=== PATIENT | male | born 1975 | race African-American/Black ===

== ENCOUNTER 2020-01-06 21:29 | Emergency (ER) | payer SELFPAY ==
[2020-01-06 21:27] VITALS: BP 169/113; PULSE 109; RESP 15; TEMP 37.3; O2SAT 96
[2020-01-06 21:33] VITALS: PULSE 105
--- NOTE | 2020-01-06 21:49 | ED.GENADULT ---
HPI - General Adult General Chief complaint: Unspecified Stated complaint: weakness Time Seen by Provider: 01/06/20 21:51 Source: patient and RN notes reviewed Mode of arrival: EMS Limitations: no limitations History of Present Illness HPI narrative: Pt is a 44 y/o male who presents to the ED via EMS with c/o bilateral hand shaking starting this evening. He notes that he has felt slightly under the weather recently, stating that he has had intermittent nausea, a decreased appetite, rhinorrhea, and mild body aches over the past week. Pt notes that his bilateral hands began shaking shortly after getting to work around 18:00 this evening. He states that his boss noticed his symptoms and subsequently called EMS. Pt currently reports anxiety while in the ED bed, but denies any CP, chest pressure, or diarrhea. He does note that he recently lost 7 lbs over the past month. MD complaint: Hand Shaking Onset (ago): hour(s) (4) Location: upper extremity (bilateral hands) Associated symptoms: loss of appetite, nausea/vomiting (nausea) and other (rhinorrhea; body aches; anxiety; weight loss) Related Data Home Medications Medication Instructions Recorded Confirmed No Home Medications 01/06/20 01/06/20 Allergies Allergy/AdvReac Type Severity Reaction Status Date / Time No Known Allergies Allergy Verified 01/06/20 21:32 Review of Systems Review of Systems: All systems reviewed & are unremarkable except as noted in HPI and below Constitutional: Constitutional: Reports body ache(s), Reports poor appetite and Reports weight loss ENT: Reports nasal discharge Cardiovascular: Cardiovascular: Denies chest pain and Denies other (chest pressure) Gastrointestinal: Gastrointestinal: Denies diarrhea and Reports nausea Neurologic: Reports tremor(s) (shaking in bilateral hands) Psychiatric: Psychiatric: Reports anxiety PMFSH Past Medical History Medical History Healthy adult male Surgical History Surgical History No significant past surgical history Social History Social History Smoking status: Unknown if ever smoked Gender identity (if verbalized by the patient): Male Exam Narrative: Exam Narrative: GENERAL: Anxious-appearing, well-nourished, and in no acute distress. HEAD: Normocephalic, atraumatic. ENT: Mucous membranes moist. CHEST: Clear to auscultation. No respiratory distress. HEART: Tachycardic and regular. Normal peripheral pulses. ABDOMEN: Soft, nontender, nondistended, normal active bowel sounds. EXTREMITIES: Normal range of motion. No edema. SKIN: Warm, dry, no rash. NEURO: No focal deficits. Slightly tremulous in hands/face. Alert and oriented x3. Course Course Emergency Course: Tremors resolved. Tachycardia resolved. Informed of results. Suspect symptoms may been related to exhaustion and anxiousness. Will give PCP follow-up. Vital Signs Vital signs: Vital Signs Temperature 99.1 F 01/06/20 21:27 Pulse Rate 109 H 01/06/20 21:27 Respiratory Rate 15 01/06/20 21:27 Blood Pressure 169/113 H 01/06/20 21:27 Pulse Oximetry 96 01/06/20 21:27 Temperature 99.1 F 01/06/20 21:27 Pulse Rate 88 01/07/20 00:22 Respiratory Rate 15 01/07/20 00:22 Blood Pressure 154/105 H 01/07/20 00:22 Pulse Oximetry 96 01/07/20 00:22 Medical Decision Making Vital Signs Vital Signs: Vital Signs Temperature 99.1 F 01/06/20 21:27 Pulse Rate 109 H 01/06/20 21:27 Respiratory Rate 15 01/06/20 21:27 Blood Pressure 169/113 H 01/06/20 21:27 Pulse Oximetry 96 01/06/20 21:27 Temperature 99.1 F 01/06/20 21:27 Pulse Rate 88 01/07/20 00:22 Respiratory Rate 15 01/07/20 00:22 Blood Pressure 154/105 H 01/07/20 00:22 Pulse Oximetry 96 01/07/20 00:22 Lab Data Result diagrams: 01/06/20 22:01 01/06/20 22:01
[2020-01-06 22:07] LABS: Basophils Absolute Auto 0.1 K/mm3 (0.0-0.1); Basophils Percent Auto 0.9 % (0.2-1.2); Eosinophils Percent Auto 0.2 % (0-4.4); Hematocrit 41.4 % (42.0-52.0); Immature Granulocyte Absolute 0.01 K/mm3 (0.00-0.031); Immature Granulocyte Percent A 0.2 % (0-0.5); Lymphocytes Absolute Auto 1.14 K/mm3 (0.9-3.2); Lymphocytes Percent Auto 20.5 % (18.3-44.2); Mean Corpuscular HGB Conc 33.8 g/dl (32-36); Mean Corpuscular Hemoglobin 30.4 pg (26-34); Mean Platelet Volume 11.7 fl (7.4-10.4); Monocytes Absolute Auto 0.5 K/mm3 (0.1-0.6); Monocytes Percent Auto 9.4 % (2.6-8.5); Neutrophils Absolute Auto 3.8 K/mm3 (1.3-6.7); Neutrophils Percent Auto 68.8 % (45.5-73.1); Platelet Count Result 153 k/mm3 (150-375); Red Cell Distribution Width 14.6 % (11.5-14.5); White Blood Count 5.6 K/mm3 (4.5-10.0)
[2020-01-06 22:18] LABS: Blood Urea Nitrogen 8 mg/dL (9-20); Calcium 9.7 mg/dL (8.4-10.2); Carbon Dioxide 24 mmol/L (22-30); Chloride 99 mmol/L (98-107); Estimated CRCL calculation 141 ml/min; Estimated Glomerular Filt Rate > 60; Glucose 111 mg/dL (75-110); Potassium 4.1 mmol/L (3.4-5.0); Sodium 141 mmol/L (137-145)
[2020-01-06] MEDS: SODIUM CHLORIDE 0.9% IV 1,000 ML 999 ML IV CONT (22:28)
[2020-01-06 22:54] VITALS: BP 174/112; PULSE 92; RESP 16; O2SAT 98
[2020-01-06 23:35] VITALS: BP 167/104; PULSE 111; RESP 31; O2SAT 100
--- NOTE | 2020-01-06 23:35 | PC.NURSE ---
assuming care of pt at this time, recieved report from isha lópez
[2020-01-07 00:22] VITALS: BP 154/105; PULSE 88; RESP 15; O2SAT 96
[2020-01-07 00:42] VITALS: BP 159/101; PULSE 80; RESP 16; TEMP 37.1; O2SAT 99
== END 2020-01-07 00:44 | disposition home or self-care (01) ==
PROVIDERS: Emergency Provider Emergency Medicine
DX: R25.1 Tremor, unspecified (principal); F41.9 Anxiety disorder, unspecified; R03.0 Elevated blood-pressure reading, without diagnosis of hypertension
CPT/HCPCS: 36415; 80048; 85025; 87804; 99283; J7030